=== PATIENT | male | born 1960 ===

== ENCOUNTER 2017-06-15 11:36 | Emergency (ER) | payer OTHER ==
[~2017-06-15] VITALS: Ht 182.9 cm; Wt 132.9 kg
[2017-06-15 11:41] VITALS: Ht 182.9 cm; Wt 132.9 kg
--- NOTE | 2017-06-15 12:12 | ERD ---
ER Documentation Chief Complaint Chief Complaint SENT BY PCP FOR UNCONTROLLED BLOOD PRESSURE HPI This is a 56-year-old male with a past medical history of poorly controlled hypertension and a previous stroke who is presenting from an office appointment with concerns of significant hypertension. The patient has no complaints. He went to the office for a checkup when he was found to have blood pressures in the 220s-230s over 110s-130s. He was recommended that he come to the emergency department for further evaluation. The patient denies feeling sick recently. The patient denies fever or chills. The patient has had no headache or vision changes. The patient does not endorse neck or back pain. The patient denies lightheadedness or dizziness. The patient has had no chest pain or shortness of breath or trouble breathing. The patient denies nausea or vomiting. The patient denies abdominal pain or changes to bowel movements or urination. The patient has had no focal deficits. The patient has had no weakness or numbness or tingling to the face or extremities. ROS All systems reviewed and are negative except as per history of present illness. Medications Home Meds Reported Medications Metoprolol Tartrate* (Lopressor*) 25 Mg Tablet, 25 MG PO BID, #60 TAB 06/15/17 Rosuvastatin Calcium* (Crestor*) 5 Mg Tablet, 5 MG PO QHS, #30 TAB 06/15/17 Hydrochlorothiazide* (Hydrochlorothiazide*) 25 Mg Tab, 25 MG PO DAILY, #30 TAB 06/15/17 Enalapril Maleate* (Enalapril Maleate*) 10 Mg Tablet, 10 MG PO DAILY, TAB 06/15/17 Allergies Allergies: Coded Allergies: nifedipine (Verified Allergy, Mild, RASH, 06/15/17) PMhx/Soc History of Surgery: No Hx Neurological Disorder: Yes (Previous stroke) Hx Respiratory Disorders: No Hx Cardiac Disorders: Yes (Hypertension) Hx Psychiatric Problems: No Hx Miscellaneous Medical Probl: No Hx Alcohol Use: No Hx Substance Use: No Hx Tobacco Use: Yes Smoking Status: Current every day smoker FmHx Family History: diabetes (Father), other (HTN (Mother)) Physical Exam Vitals Vital Signs Date Time Temp Pulse Resp B/P Pulse Ox O2 Delivery O2 Flow Rate FiO2 06/15/17 13:13 180/109 06/15/17 12:39 65 18 171/121 99 Room Air 11/15/17 11:41 97.9 68 16 231/125 98 Physical Exam Const: No apparent distress, well-developed, well-nourished Head: Atraumatic Eyes: Normal Conjunctiva. Extraocular movements intact. ENT: Normal External Ears, Nose and Mouth. Neck: Full range of motion. No meningismus. Resp: Clear to auscultation bilaterally Cardio: Regular rate and rhythm, no murmurs Abd: Obese, Soft, non tender, non distended. Normal bowel sounds Skin: No petechiae or rashes Back: No midline or flank tenderness Ext: No cyanosis, or edema Neur: Awake and alert, oriented 4. Cranial nerves intact. No facial droop. Normal strength and sensation in all extremities. Coordination with finger to nose normal. Psych: Normal Mood and Affect Result Diagram: 06/15/17 1200 06/15/17 1200 Results 24 hrs Laboratory Tests Test 06/15/17 12:00 White Blood Count 6.410^3/ul Red Blood Count 5.4010^6/ul Hemoglobin 15.2g/dl Hematocrit 47.2% Mean Corpuscular Volume 87.4fl Mean Corpuscular Hemoglobin 28.1pg Mean Corpuscular Hemoglobin Concent 32.2g/dl Red Cell Distribution Width 14.7% Platelet Count 51985^3/UL Mean Platelet Volume 9.1fl Neutrophils % 44.4% Lymphocytes % 44.9% Monocytes % 8.6% Eosinophils % 1.4% Basophils % 0.5% Nucleated Red Blood Cells % 0.0/100WBC Neutrophils # 2.810^3/ul Lymphocytes # 2.910^3/ul Monocytes # 0.610^3/ul Eosinophils # 0.110^3/ul Basophils # 0.010^3/ul Nucleated Red Blood Cells # 0.010^3/ul Sodium Level 147mmol/L Potassium Level 4.6mmol/L Chloride Level 107mmol/L Carbon Dioxide Level 29mmol/L Anion Gap 16 Blood Urea Nitrogen 15mg/dl Creatinine 1.20mg/dl Glucose Level 90mg/dl Calcium Level 9.4mg/dl Troponin I < 0.012ng/ml Procedures/[facility] MDM The patient's presentation warrants further investigation. The patient does not have any symptoms, but we will evaluate for any organ damage. LABS The patient's blood work was obtained and reviewed. The patient's CBC shows no leukocytosis or left shift. The patient is afebrile and does not appear systemically ill. I do not suspect a systemic infection. The patient is not anemic today. The patient's platelet count is unremarkable. The patient's BMP shows no signs of metabolic or electrolyte emergencies. The patient has normal renal function testing. Troponin is negative. EKG EKG read by me: Rate/Rhythm: Regular rate and rhythm at a rate of 70bpm Intervals: Normal [place]: Normal Impression: No evidence of ischemia or arrhythmia IMAGING CXR FINDINGS: Cardiac/vascular structures: Moderate sized cardiomediastinal silhouette. Aortic calcifications. Pulmonary: Bilateral basilar airspace opacities. No pleural effusion. No evidence of pneumothorax. Osseous structures: Normal Soft tissues: Normal IMPRESSION: Bilateral basilar airspace opacities representing atelectasis or pneumonia. Aortic atherosclerotic calcifications. Electronically viewed and signed by Physician Jori on 06/15/2017 12 :43 TREATMENT/DISPOSITION Patient has no symptoms of pneumonia, CXR likely represents atelectasis. The patient's blood pressure was elevated at greater than 120/80 while in the emergency department. The patient was otherwise stable with no evidence of hypertensive urgency or emergency. The patient will require reevaluation of his blood pressure in 2-3 days, but this may be completed by a primary care physician as an outpatient. He does not require admission for blood pressure control. At this time, I feel that the patient stable for discharge. He will need follow -up with his primary care physician in 2-3 days. He will be given strict precautions with which to return to the emergency department. Departure Diagnosis: Primary Impression: Hypertension Hypertension type: essential hypertension Qualified Code: I10 - Essential hypertension Condition: Stable JESSE LASSITER MD Jun 15, 2017 12:12
[2017-06-15 12:20] LABS: BASOPHILS % 0.5 % (0.0-2.0); EOSINOPHILS # 0.1 10^3/ul (0.0-0.5); EOSINOPHILS % 1.4 % (0.0-7.0); HEMATOCRIT 47.2 % (42.0-52.0); HEMOGLOBIN 15.2 g/dl (14.0-18.0); LYMPHOCYTES # 2.9 10^3/ul (0.8-2.9); LYMPHOCYTES % 44.9 % (15.0-51.0); MEAN CORPUSCULAR HEMOGLOBIN 28.1 pg (29.0-33.0); MEAN CORPUSCULAR HGB CONC 32.2 g/dl (32.0-37.0); MEAN CORPUSCULAR VOLUME 87.4 fl (82.0-101.0); MEAN PLATELET VOLUME 9.1 fl (7.4-10.4); MONOCYTE # 0.6 10^3/ul (0.3-0.9); MONOCYTES % 8.6 % (0.0-11.0); NEUTROPHIL # 2.8 10^3/ul (1.6-7.5); NEUTROPHILS % 44.4 % (39.0-77.0); PLATELET COUNT 259 10^3/UL (140-415); RED CELL DISTRIBUTION WIDTH 14.7 % (11.5-14.5); WHITE BLOOD COUNT 6.4 10^3/ul (4.8-10.8)
[2017-06-15 12:39] VITALS: PULSE 65; RESP 18
--- NOTE | 2017-06-15 12:43 | RADRPT ---
PROCEDURE: XR Chest. CLINICAL INDICATION: Chest pain TECHNIQUE: Single portable view of the chest was obtained. COMPARISON: None. FINDINGS: Cardiac/vascular structures: Moderate sized cardiomediastinal silhouette. Aortic calcifications. Pulmonary: Bilateral basilar airspace opacities. No pleural effusion. No evidence of pneumothorax. Osseous structures: Normal Soft tissues: Normal IMPRESSION: Bilateral basilar airspace opacities representing atelectasis or pneumonia. Aortic atherosclerotic calcifications. RPTAT:AAJJ Physician Jori Date Time Electronically viewed and signed by Pham Mathews Physician on 06/15/2017 12:43 /
[2017-06-15 12:53] LABS: ANION GAP 16 (8-16); BLOOD UREA NITROGEN 15 mg/dl (7-20); CALCIUM 9.4 mg/dl (8.4-10.2); CARBON DIOXIDE 29 mmol/L (21-31); CHLORIDE 107 mmol/L (97-110); GLUCOSE 90 mg/dl (70-220); POTASSIUM 4.6 mmol/L (3.5-5.1); SODIUM 147 mmol/L (135-144)
[2017-06-15 13:08] LABS: TROPONIN-I < 0.012 ng/ml (0.00-0.12)
[2017-06-15 13:13] VITALS: BP 180/109
[2017-06-15] MEDS ORDERED: ENAL10TA PO (14:04)
[2017-06-15] MEDS ORDERED: HYDR25TA6 PO (14:05)
[2017-06-15] MEDS ORDERED: ROSU5TAB5 PO (14:06)
[2017-06-15] MEDS ORDERED: METO25TA4 PO (14:07)
== END 2017-06-15 18:28 | disposition home or self-care (01) ==
LOC: E/R 11:36
DX: I10 Essential (primary) hypertension (principal); F17.210 Nicotine dependence, cigarettes, uncomplicated
CPT/HCPCS: 36415; 71010; 80048; 84484; 85025; 93005